=== PATIENT | male | born 2000 | race Caucasian/White ===

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

== ENCOUNTER 2019-05-21 01:14 | Emergency (ER) | payer OTHER ==
[2019-05-21 03:16] VITALS: BP 120/73; PULSE 69; TEMP 98.5; BMI 31.9
== END 2019-05-21 01:30 | disposition left against medical advice (07) ==
LOC: JER 01:14
DX: Z53.21 Procedure and treatment not carried out due to patient leaving prior to being seen by health care provider (principal)
CPT/HCPCS: 99281-25